=== PATIENT | female | born 1980 | race African-American/Black ===

== ENCOUNTER 2018-04-05 21:23 | Emergency (ER) | payer BC ==
[2018-04-05 21:33] VITALS: BP 148/91; PULSE 92; TEMP 99.4; BMI 28.6
--- NOTE | 2018-04-05 22:15 | PDOC ---
History of Present Illness - General Chief Complaint: Bite Stated Complaint: STING BY BEE Time Seen by Provider: 04/05/18 22:14 Past History - Past Medical History Allergies/Adverse Reactions: Allergies Allergy/AdvReac Type Severity Reaction Status Date / Time Penicillins Allergy Verified 04/05/18 21:33 COPD: No - Suicide/Smoking/Psychosocial Hx Smoking History: Never smoked *Physical Exam - Vital Signs Last Vital Signs Temp Pulse Resp BP Pulse Ox 99.4 F 92 H 18 148/91 100 04/05/18 21:28 04/05/18 21:28 04/05/18 21:28 04/05/18 21:28 04/05/18 21:28 *DC/Admit/Observation/Transfer - Referrals Referrals: Ann Gomez NP [Primary Care Provider] - - Patient Instructions - Post Discharge Activity
[2018-04-05] MEDS ORDERED: diphenhydrAMINE HCL 25 MG CAPSULE (FP) PO ONE ×2 (22:25→22:33)
[2018-04-05] MEDS ORDERED: IBUPROFEN 600 MG TABLET (FP) PO ONE ×2 (22:25→22:33)
--- NOTE | 2018-04-05 22:43 | PDOC ---
History of Present Illness - General Chief Complaint: Bite Stated Complaint: STING BY BEE Time Seen by Provider: 04/05/18 22:14 History Source: Patient - History of Present Illness Initial Comments: 04/05/18 22:38 37 year old female c/o right thigh bee sting at 5 pm now with increased swelling to the site. denies respiratory complaints and oral swelling, hives. Past History - Past Medical History Allergies/Adverse Reactions: Allergies Allergy/AdvReac Type Severity Reaction Status Date / Time Penicillins Allergy Verified 04/05/18 21:33 Home Medications: Ambulatory Orders Diphenhydramine HCl [Benadryl -] 25 mg PO Q8H PRN #21 capsule 04/05/18 COPD: No - Suicide/Smoking/Psychosocial Hx Smoking History: Never smoked Review of Systems - Review of Systems Able to Perform ROS?: Yes Is the patient limited Danish proficient: No Constitutional: No: Symptoms Reported, See HPI, Chills, Diaphoresis, Fever, Loss of Appetite, Malaise, Night Sweats, Weakness, Weight Stable, Unintentional Wgt. Loss, Unexplained wgt Loss, Other *Physical Exam - Vital Signs Last Vital Signs Temp Pulse Resp BP Pulse Ox 99.4 F 92 H 18 148/91 100 04/05/18 21:28 04/05/18 21:28 04/05/18 21:28 04/05/18 21:28 04/05/18 21:28 - Physical Exam General Appearance: Yes: Appropriately Dressed Gastrointestinal/Abdominal: positive: Normal Bowel Sounds, Soft Musculoskeletal: positive: Normal Inspection Extremity: positive: Normal Capillary Refill, Normal Inspection, Normal Range of Motion Integumentary: positive: Normal Color, Dry, Warm Neurologic: positive: Fully Oriented, Alert, Normal Mood/Affect ED Treatment Course - Medications Given in the ED: ED Medications Discontinued Medications Generic Name Dose Route Start Last Admin Trade Name Freq PRN Reason Stop Dose Admin Diphenhydramine HCl 50 mg 04/05/18 22:25 04/05/18 22:35 Benadryl - PO 04/05/18 22:26 50 mg ONCE ONE Administration Ibuprofen 600 mg 04/05/18 22:25 04/05/18 22:35 Motrin - PO 04/05/18 22:26 600 mg ONCE ONE Administration Progress Note - Progress Note Progress Note: A: allergic reaction P: benadryl ice to the area. *DC/Admit/Observation/Transfer Diagnosis at time of Disposition: Bee sting reaction Qualifiers: Encounter type: initial encounter Injury intent: accidental or unintentional Qualified Code(s): T63.441A - Toxic effect of venom of bees, accidental ( unintentional), initial encounter - Discharge Dispostion Disposition: HOME - Prescriptions Prescriptions: Diphenhydramine HCl [Benadryl -] 25 mg PO Q8H PRN #21 capsule PRN Reason: For Itching - Referrals Referrals: Ann Gomez HOT ROOM ATTENDANT [Primary Care Provider] - Call tomorrow - Patient Instructions Printed Discharge Instructions: DI for Insect Bites and Stings Additional Instructions: you may apply ice to the area take benadryl every 8 hours as needed for swelling/ itchiness return to the ER if you develop any respiratory complaints, throat swelling or worsening symptoms/ - Post Discharge Activity Forms/Work/School Notes: Back to Work
== END 2018-04-05 23:12 | disposition home or self-care (01) ==
LOC: JERFT 21:23 → JER 21:23
DX: T63.441A Toxic effect of venom of bees, accidental (unintentional), initial encounter (principal); R60.0 Localized edema; Y92.9 Unspecified place or not applicable
CPT/HCPCS: 99281-25